=== PATIENT | male | born 1960 | race Asian ===

== ENCOUNTER 2018-05-11 13:05 | Emergency (ER) | payer MEDICARE, OTHER ==
[~2018-05-11] VITALS: Ht 170.2 cm; Wt 50.0 kg
[2018-05-11 14:28] LABS: BASOPHILS % (AUTO) 0.2 % (0.0-2.0); EOSINOPHILS % (AUTO) 1.1 % (1.0-6.0); HEMOGLOBIN 10.7 g/dL (13.5-17.5); LYMPHOCYTES # (AUTO) 1.4 K/uL (1.0-4.8); LYMPHOCYTES % (AUTO) 26.3 % (22.0-44.0); MEAN CORPUSCULAR HEMOGLOBIN 29.9 pg (26.0-34.0); MEAN CORPUSCULAR HGB CONC 33.4 G/dL (31.0-37.0); MEAN CORPUSCULAR VOLUME 89 fL (80-100); MONOCYTES # (AUTO) 0.5 K/uL (0.1-1.0); MONOCYTES % (AUTO) 8.9 % (2.0-9.0); NEUTROPHILS # (AUTO) 3.3 K/uL (1.8-7.7); NEUTROPHILS % (AUTO) 63.5 % (40.0-70.0); PLATELET COUNT (AUTO) 228 K/uL (150-450); RED BLOOD CELL COUNT(AUTO) 3.58 MIL/uL (4.50-5.90); RED CELL DISTRIBUTION WIDTH 15.7 % (11.5-14.5)
[2018-05-11 14:34] LABS: APPEARANCE,URINE CLOUDY (CLEAR); BILIRUBIN,URINE NEGATIVE (NEGATIVE); GLUCOSE, URINE (UA) >=1000 mg/dL (NEGATIVE); KETONES,URINE NEGATIVE (NEGATIVE); LEUKOCYTE ESTERASE ,URINE NEGATIVE (NEGATIVE); NITRATE,URINE NEGATIVE (NEGATIVE); OCCULT BLOOD,URINE NEGATIVE (NEGATIVE); PROTEIN,URINE NEGATIVE (NEGATIVE); UROBILINOGEN,URINE 0.2 mg/dL (<=1.0)
[2018-05-11 14:39] LABS: ANION GAP 5 mmol/L (8-16); CALCIUM, TOTAL 8.7 mg/dL (8.8-10.5); CARBON DIOXIDE 29 mmol/L (22-29); CHLORIDE 100 mmol/L (98-107); CREATININE 0.54 mg/dL (0.60-1.30); GLOMERULAR FILTR. RATE CALC > 60 mL/min (>60); GLUCOSE,RANDOM 362 mg/dL (70-110); INR 0.9 (0.9-1.1); POTASSIUM 3.4 mmol/L (3.5-5.1); PROTHROMBIN TIME 9.5 SEC (9.4-11.6); SODIUM SERUM 134 mmol/L (136-145); UREA NITROGEN, BLOOD 5 mg/dL (7-18)
[2018-05-11 14:46] LABS: ALANINE AMINOTRANSFERASE 28 U/L (12-78); ALBUMIN 3.1 g/dL (3.4-5.0); ALKALINE PHOSPHATASE 126 U/L (46-116); ASPARTATE AMINOTRANSFERASE 14 U/L (15-37); BILIRUBIN,TOTAL 0.2 mg/dL (0.1-1.0); CREATINE KINASE, TOTAL 39 U/L (39-308); TOTAL PROTEIN, SERUM 6.8 g/dL (6.4-8.2)
[2018-05-11 14:48] LABS: B-TYPE NATRIURETIC PEPTIDE 48 pg/mL (0-100)
[2018-05-11 15:11] LABS: BACTERIA,URINE None Seen /HPF (None Seen); RBC,URINE 0-2 /HPF (0-2); WBC,URINE 0-2 /HPF (0-5)
[2018-05-11 15:12] LABS: CALCIUM OXALATE CRYSTALS,UR Many /LPF (None Seen); SQUAMOUS EPITHELIAL CELL,UR None Seen /LPF (None Seen)
[2018-05-11] MEDS ORDERED: SODIUM CHLORIDE 0.9% 1,000 ML IV ONE (15:15)
[2018-05-11] MEDS ORDERED: INSULIN REGULAR, HUMAN 100 UNITS/ML SQ ONE (15:45)
[2018-05-11 16:03] LABS: GLUCOSE,POINT OF CARE 317 MG/DL (70-110)
[2018-05-11 16:23] LABS: GLUCOSE,POINT OF CARE 250 MG/DL (70-110)
[2018-05-11] MEDS ORDERED: POTASSIUM CHLORIDE 20 MEQ ER TABLET PO ONE (16:30)
[2018-05-11 16:56] VITALS: BP 164/99
== END 2018-05-11 17:45 | disposition home or self-care (01) ==
LOC: EMS 13:08
DX: R19.7 Diarrhea, unspecified (principal); I10 Essential (primary) hypertension; E11.9 Type 2 diabetes mellitus without complications; F17.210 Nicotine dependence, cigarettes, uncomplicated; R79.1 Abnormal coagulation profile
CPT/HCPCS: 36415; 71045; 80053; 81001; 82550; 82962; 83880; 84484; 85025; 85610; 85730; 93005; 96360; 96361; 96372; 99285; J1815; J7030

== ENCOUNTER 2018-07-28 10:58 | Emergency (ER) | payer MEDICARE, MEDICAID ==
[~2018-07-28] VITALS: Ht 172.7 cm; Wt 54.5 kg
[2018-07-28] MEDS ORDERED: SODIUM CHLORIDE 0.9% 1,000 ML IV ONE (11:15)
[2018-07-28] MEDS ORDERED: AMYL1CAP62 PO (11:17)
[2018-07-28] MEDS ORDERED: GABA-529 PO (11:17)
[2018-07-28] MEDS ORDERED: HYDR25TA84 PO (11:17)
[2018-07-28] MEDS ORDERED: LOPE2 PO (11:17)
[2018-07-28] MEDS ORDERED: MIDO5TAB23 PO (11:17)
[2018-07-28] MEDS ORDERED: INSU3INS3 SQ (11:17)
[2018-07-28] MEDS ORDERED: INSU100I13 SQ (11:17)
[2018-07-28 11:18] LABS: GLUCOSE,POINT OF CARE 415 MG/DL (70-110)
[2018-07-28 11:35] LABS: BASOPHILS % (AUTO) 0.2 % (0.0-2.0); EOSINOPHILS % (AUTO) 1.2 % (1.0-6.0); HEMATOCRIT 36.4 % (41-53); HEMOGLOBIN 12.4 g/dL (13.5-17.5); LYMPHOCYTES # (AUTO) 1.2 K/uL (1.0-4.8); MEAN CORPUSCULAR HEMOGLOBIN 31.5 pg (26.0-34.0); MEAN CORPUSCULAR HGB CONC 34.1 G/dL (31.0-37.0); MEAN CORPUSCULAR VOLUME 93 fL (80-100); MONOCYTES # (AUTO) 0.5 K/uL (0.1-1.0); MONOCYTES % (AUTO) 9.4 % (2.0-9.0); NEUTROPHILS # (AUTO) 3.5 K/uL (1.8-7.7); NEUTROPHILS % (AUTO) 66.2 % (40.0-70.0); PLATELET COUNT (AUTO) 178 K/uL (150-450); RED BLOOD CELL COUNT(AUTO) 3.93 MIL/uL (4.50-5.90); RED CELL DISTRIBUTION WIDTH 13.3 % (11.5-14.5)
[2018-07-28 12:06] LABS: ANION GAP 7 mmol/L (8-16); CALCIUM, TOTAL 9.3 mg/dL (8.8-10.5); CARBON DIOXIDE 26 mmol/L (22-29); CHLORIDE 102 mmol/L (98-107); CREATININE 0.77 mg/dL (0.60-1.30); GLOMERULAR FILTR. RATE CALC > 60 mL/min (>60); GLUCOSE,RANDOM 385 mg/dL (70-110); POTASSIUM 3.9 mmol/L (3.5-5.1); SODIUM SERUM 135 mmol/L (136-145); UREA NITROGEN, BLOOD 9 mg/dL (7-18)
[2018-07-28 12:09] LABS: APPEARANCE,URINE CLEAR (CLEAR); BILIRUBIN,URINE NEGATIVE (NEGATIVE); GLUCOSE, URINE (UA) >=1000 mg/dL (NEGATIVE); KETONES,URINE NEGATIVE (NEGATIVE); LEUKOCYTE ESTERASE ,URINE NEGATIVE (NEGATIVE); NITRATE,URINE NEGATIVE (NEGATIVE); OCCULT BLOOD,URINE NEGATIVE (NEGATIVE); PROTEIN,URINE NEGATIVE (NEGATIVE); UROBILINOGEN,URINE 0.2 mg/dL (<=1.0)
[2018-07-28 12:11] LABS: ALANINE AMINOTRANSFERASE 14 U/L (12-78); ALBUMIN 3.5 g/dL (3.4-5.0); ALKALINE PHOSPHATASE 101 U/L (46-116); ASPARTATE AMINOTRANSFERASE 9 U/L (15-37); BILIRUBIN,TOTAL 0.3 mg/dL (0.1-1.0); CREATINE KINASE, TOTAL ONLY 48 U/L (39-308)
[2018-07-28 12:17] LABS: BACTERIA,URINE None Seen /HPF (None Seen); RBC,URINE None Seen /HPF (0-2); SQUAMOUS EPITHELIAL CELL,UR Few /LPF (None Seen); WBC,URINE 0-2 /HPF (0-5)
[2018-07-28 12:24] LABS: B-TYPE NATRIURETIC PEPTIDE < 5 pg/mL (0-100)
[2018-07-28 12:43] LABS: GLUCOSE,POINT OF CARE 365 MG/DL (70-110)
[2018-07-28] MEDS ORDERED: INSULIN REGULAR, HUMAN 100 UNITS/ML SQ ONE (13:30)
[2018-07-28 13:58] LABS: GLUCOSE,POINT OF CARE 325 MG/DL (70-110)
[2018-07-28 14:39] LABS: GLUCOSE,POINT OF CARE 248 MG/DL (70-110)
[2018-07-28 14:40] VITALS: BP 140/101
== END 2018-07-28 14:50 | disposition home or self-care (01) ==
LOC: EMS 11:00
DX: E11.65 Type 2 diabetes mellitus with hyperglycemia (principal); I10 Essential (primary) hypertension; Z79.4 Long term (current) use of insulin
CPT/HCPCS: 36415; 71045; 80053; 81001; 82550; 82962; 83880; 84484; 85025; 93005; 96360; 96361; 96372; 99285; J1815

== ENCOUNTER 2019-05-09 14:07 | Emergency (ER) | payer MEDICARE, MEDICAID ==
[~2019-05-09] VITALS: Ht 172.7 cm; Wt 45.5 kg
[~2019-05-09 14:07] MED LIST: AMYL1CAP62 PO; GABA-529 PO; HYDR25TA84 PO; INSU100I13 SQ; INSU3INS3 SQ; LOPE2 PO; MIDO5TAB23 PO
[2019-05-09 17:56] LABS: BASOPHILS % (AUTO) 0.1 % (0.0-2.0); EOSINOPHILS % (AUTO) 0 % (1.0-6.0); HEMATOCRIT 31.2 % (41-53); HEMOGLOBIN 10.6 g/dL (13.5-17.5); LYMPHOCYTES # (AUTO) 0.9 K/uL (1.0-4.8); LYMPHOCYTES % (AUTO) 9.2 % (22.0-44.0); MEAN CORPUSCULAR HEMOGLOBIN 34.9 pg (26.0-34.0); MEAN CORPUSCULAR HGB CONC 33.8 G/dL (31.0-37.0); MEAN CORPUSCULAR VOLUME 103 fL (80-100); MONOCYTES # (AUTO) 0.5 K/uL (0.1-1.0); MONOCYTES % (AUTO) 4.5 % (2.0-9.0); NEUTROPHILS # (AUTO) 8.7 K/uL (1.8-7.7); PLATELET COUNT (AUTO) 184 K/uL (150-450); RED BLOOD CELL COUNT(AUTO) 3.02 MIL/uL (4.50-5.90); RED CELL DISTRIBUTION WIDTH 13.5 % (11.5-14.5)
[2019-05-09 17:57] LABS: NEUTROPHILS % (AUTO) 86.2 % (40.0-70.0)
[2019-05-09 18:08] LABS: ANION GAP 17 mmol/L (8-16); CALCIUM, TOTAL 8.2 mg/dL (8.8-10.5); CARBON DIOXIDE 22 mmol/L (22-29); CHLORIDE 107 mmol/L (98-107); CREATININE 0.88 mg/dL (0.60-1.30); GLOMERULAR FILTR. RATE CALC > 60 mL/min (>60); GLUCOSE,RANDOM 197 mg/dL (70-110); POTASSIUM 3.2 mmol/L (3.5-5.1); SODIUM SERUM 146 mmol/L (136-145); UREA NITROGEN, BLOOD 18 mg/dL (7-18)
[2019-05-09 18:13] LABS: ACETAMINOPHEN < 2 mcg/mL (10-30); ALANINE AMINOTRANSFERASE 27 U/L (12-78); ALBUMIN 2.8 g/dL (3.4-5.0); ALKALINE PHOSPHATASE 123 U/L (46-116); ASPARTATE AMINOTRANSFERASE 55 U/L (15-37); BILIRUBIN,TOTAL 0.8 mg/dL (0.1-1.0); TOTAL PROTEIN, SERUM 5.8 g/dL (6.4-8.2)
[2019-05-09 18:21] LABS: SALICYLATE < 2.8 mg/dL (2.8-20.0)
[2019-05-09] MEDS ORDERED: POTASSIUM CHLORIDE 20 MEQ ER TABLET PO ONE (19:30)
[2019-05-09 21:20] VITALS: BP 116/68
== END 2019-05-09 21:35 | disposition home or self-care (01) ==
LOC: EMS 14:07
DX: F32.9 Major depressive disorder, single episode, unspecified (principal); E87.6 Hypokalemia; E11.9 Type 2 diabetes mellitus without complications; I10 Essential (primary) hypertension; F17.210 Nicotine dependence, cigarettes, uncomplicated; Z79.4 Long term (current) use of insulin
CPT/HCPCS: 36415; 80053; 82962; 85025; 99284; G0480; G0481

== ENCOUNTER 2019-08-06 13:23 | Emergency (ER) | payer MEDICARE, MEDICAID ==
[~2019-08-06] VITALS: Ht 175.3 cm; Wt 49.7 kg
[~2019-08-06 13:23] MED LIST changes: -MIDO5TAB23 PO; +MIDO5TAB29 PO
[2019-08-06] MEDS ORDERED: SODIUM CHLORIDE 0.9% 1,000 ML IV ONE ×2 (14:30→17:15)
[2019-08-06 16:07] LABS: HEMATOCRIT 26.2 % (41-53); HEMOGLOBIN 8.9 g/dL (13.5-17.5); MEAN CORPUSCULAR HEMOGLOBIN 34.1 pg (26.0-34.0); MEAN CORPUSCULAR HGB CONC 34.1 G/dL (31.0-37.0); MEAN CORPUSCULAR VOLUME 100 fL (80-100); PLATELET COUNT (AUTO) 126 K/uL (150-450); RED BLOOD CELL COUNT(AUTO) 2.62 MIL/uL (4.50-5.90); RED CELL DISTRIBUTION WIDTH 15.1 % (11.5-14.5)
[2019-08-06 16:28] LABS: INR 1.3 (0.9-1.1); PROTHROMBIN TIME 12.8 SEC (9.4-11.6)
[2019-08-06 16:41] LABS: ALBUMIN 2.1 g/dL (3.4-5.0); BILIRUBIN,TOTAL 1.7 mg/dL (0.1-1.0); CALCIUM, TOTAL 7.3 mg/dL (8.8-10.5); CREATININE 1.7 mg/dL (0.60-1.30); TOTAL PROTEIN, SERUM 5.8 g/dL (6.4-8.2)
[2019-08-06 16:50] LABS: POTASSIUM 2.7 mmol/L (3.5-5.1)
[2019-08-06 17:02] LABS: APPEARANCE,URINE CLOUDY (CLEAR); GLUCOSE, URINE (UA) NEGATIVE (NEGATIVE); KETONES,URINE 15 mg/dL (NEGATIVE); LEUKOCYTE ESTERASE ,URINE MODERATE (NEGATIVE); NITRATE,URINE POSITIVE (NEGATIVE); OCCULT BLOOD,URINE LARGE (NEGATIVE); PROTEIN,URINE POS 1+ (NEGATIVE)
[2019-08-06 17:08] LABS: BILIRUBIN,URINE PRELIM. POSITIVE (NEGATIVE)
[2019-08-06] MEDS ORDERED: PIPERACILLIN/TAZO 3.375 GM/D5W 50 ML IV ONE (17:15)
[2019-08-06] MEDS ORDERED: VANCOMYCIN HCL 500 MG in DEXTROSE 5%-WATER 100 ML IV ONE (17:15)
[2019-08-06] MEDS ORDERED: POTASSIUM CHLORIDE 20 MEQ ER TABLET PO ONE (17:15)
[2019-08-06 17:17] LABS: BACTERIA,URINE Many /HPF (None Seen); SQUAMOUS EPITHELIAL CELL,UR Few /LPF (None Seen); WBC,URINE 26-50 /HPF (0-5)
[2019-08-06 17:18] LABS: AMORPHOUS SEDIMENT,UR Moderate /LPF (None Seen); HYALINE CASTS, URINE 0-2 /LPF (None Seen)
[2019-08-06] MEDS ORDERED: MIDO5TAB5 PO (17:19)
[2019-08-06 18:00] LABS: BAND NEUTROPHILS % (MANUAL) 34 % (0-5); LYMPHOCYTES % (MANUAL) 4 % (22-44); MONOCYTES % (MANUAL) 9 % (2-9); SEGMENTED NEUTROPHILS % 53 % (40-70)
[2019-08-06] MEDS ORDERED: MetroNIDAZOLE 500 MG/NACL 100 ML IV ONE (21:30)
[2019-08-06] MEDS ORDERED: GADOBUTROL 1 MMOL/ML 10 ML VIAL IVP ONE (23:03)
[2019-08-07] MEDS ORDERED: POTASSIUM CHL 20 MEQ/0.45% NS 1,000 ML IV ONE (00:15)
[2019-08-07] MEDS ORDERED: ACETAMINOPHEN 1000 MG/ISO-OSM 100 ML IV ONE (00:15)
[2019-08-07] MEDS ORDERED: PIPERACILLIN/TAZO 3.375 GM/D5W 50 ML IV ONE (00:15)
[2019-08-07] MEDS ORDERED: SODIUM CHLORIDE 0.9% 1,000 ML IV ONE ×2 (00:15→01:45)
[2019-08-07 00:39] LABS: HEMATOCRIT 24.7 % (41-53); HEMOGLOBIN 8.4 g/dL (13.5-17.5); MEAN CORPUSCULAR HGB CONC 33.9 G/dL (31.0-37.0); MEAN CORPUSCULAR VOLUME 100 fL (80-100); PLATELET COUNT (AUTO) 128 K/uL (150-450); RED BLOOD CELL COUNT(AUTO) 2.46 MIL/uL (4.50-5.90); RED CELL DISTRIBUTION WIDTH 15.1 % (11.5-14.5)
[2019-08-07 00:47] LABS: CALCIUM, TOTAL 7.1 mg/dL (8.8-10.5); CREATININE 1.34 mg/dL (0.60-1.30)
[2019-08-07 00:54] LABS: POTASSIUM 2.9 mmol/L (3.5-5.1)
[2019-08-07 01:03] LABS: BAND NEUTROPHILS % (MANUAL) 28 % (0-5); LYMPHOCYTES % (MANUAL) 4 % (22-44); MONOCYTES % (MANUAL) 4 % (2-9); SEGMENTED NEUTROPHILS % 64 % (40-70)
[2019-08-07] MEDS ORDERED: POTASSIUM CHL 10 MEQ/WATER 50 ML IV ONE (01:15)
[2019-08-07 02:01] VITALS: BP 98/51
== END 2019-08-07 03:00 | disposition short-term general hospital (02) ==
LOC: EMS 13:24
DX: A41.9 Sepsis, unspecified organism (principal); M72.6 Necrotizing fasciitis; N39.0 Urinary tract infection, site not specified; E86.0 Dehydration; M62.82 Rhabdomyolysis; E87.6 Hypokalemia; N17.9 Acute kidney failure, unspecified; E11.9 Type 2 diabetes mellitus without complications; I10 Essential (primary) hypertension; F17.210 Nicotine dependence, cigarettes, uncomplicated; Z98.890 Other specified postprocedural states; Z96.643 Presence of artificial hip joint, bilateral; Z79.899 Other long term (current) drug therapy; Z79.4 Long term (current) use of insulin
CPT/HCPCS: 36415; 71045; 73080; 73200; 73220; 80048; 80053; 81001; 82550; 82962; 83605; 83880; 84484; 85025; 85610; 85651; 85730; 86140; 87040; 87077; 87086; 87186; 87205; 93005; 93971; 96361; 96365; 96366; 96367 ×2; 96368; 96375; 99291; 99292; A9585; J0131; J2543; J3370; J3480 ×2; J3490; J7030; J7060